=== PATIENT | male | born 1950 ===

== ENCOUNTER 2022-11-18 06:36 | Day surgery (SDC) | payer OTHER, MEDICARE, BC ==
[~2022-11-18] VITALS: Ht 170.2 cm; Wt 101.1 kg
[~2022-11-18 06:36] MED LIST: AMLO10 PO; ASCO500 PO; ATEN25 PO; Adult Low Dose81 MG PO; FLUN25SP; Flovent Diskus50 MCG IH; IBUPROFEN200 MG PO; LISHYD2012 PO; LISI20 PO; MULVITMINF PO; NAPR220 PO; NIAC500ER PO; ROSU5 PO; TAMS.4ER PO; VITAMIN D3 PO; [UNRECOGNIZED DRUG - OTHER] PO
[2022-11-18] MEDS ORDERED: TERA5 PO (07:04)
[2022-11-18] MEDS ORDERED: L-Lysine500 M1 PO (07:07)
[2022-11-18 08:33] VITALS: BP 137/61
== END 2022-11-18 08:50 | disposition home or self-care (01) ==
LOC: ORSCSDS 06:36
PROVIDERS: Student in an Organized Health Care Education/Training Program
PROC: 08DK3ZZ Extraction of Left Lens, Percutaneous Approach (ICD-10-PCS; principal; 2022-11-18 08:00)
DX: H25.13 Age-related nuclear cataract, bilateral (principal); H21.81 Floppy iris syndrome; I10 Essential (primary) hypertension; Z79.899 Other long term (current) drug therapy
CPT/HCPCS: 82947; J2001; J2250; J3010; J7040; V2632